=== PATIENT | male | born 1970 | race Caucasian/White ===

== ENCOUNTER 2018-11-18 17:30 | Emergency (ER) | payer MEDICAID ==
[~2018-11-18] VITALS: Ht 170.2 cm; Wt 71.0 kg
[~2018-11-18 17:30] MED LIST: DOCU-28 PO; NO HOME MEDS
[2018-11-18 17:32] VITALS: BP 120/81
[2018-11-18] MEDS ORDERED: AMOX-580 PO (18:18)
== END 2018-11-18 18:25 | disposition home or self-care (01) ==
LOC: ER 17:31
DX: H66.92 Otitis media, unspecified, left ear (principal); F15.90 Other stimulant use, unspecified, uncomplicated; Z87.442 Personal history of urinary calculi
CPT/HCPCS: 99283

== ENCOUNTER 2020-12-10 19:07 | Emergency (ER) | payer MEDICAID ==
[~2020-12-10] VITALS: Ht 172.7 cm; Wt 79.5 kg
[2020-12-10 19:20] VITALS: BP 156/95
--- NOTE | 2020-12-10 19:52 | NUR ---
Per pt, noted foreign object while removing branch. Pt does not complain of pain at this time. Complains of watering and pressure. Denies any other issues at this time.
[2020-12-10] MEDS ORDERED: proparacaine 0.5% ophthalmic drops 15ml EACHEYE ONE (20:00)
[2020-12-10] MEDS ORDERED: erythromycin ophthalmic ointment 1gm tube RIGHTEYE ONE (20:55)
[2020-12-10] MEDS ORDERED: ERYT1OIN6 RIGHTEYE (20:57)
== END 2020-12-10 21:08 | disposition home or self-care (01) ==
LOC: ER 19:08
DX: T15.01XA Foreign body in cornea, right eye, initial encounter (principal); W22.8XXA Striking against or struck by other objects, initial encounter; Y92.017 Garden or yard in single-family (private) house as the place of occurrence of the external cause; Y93.89 Activity, other specified; F15.90 Other stimulant use, unspecified, uncomplicated; Z79.2 Long term (current) use of antibiotics; Z79.899 Other long term (current) drug therapy; Z87.440 Personal history of urinary (tract) infections; Z72.89 Other problems related to lifestyle
CPT/HCPCS: 65220; 99283; 99284

== ENCOUNTER 2022-11-26 09:59 | Emergency (ER) | payer MEDICAID ==
[~2022-11-26] VITALS: Ht 167.6 cm; Wt 79.0 kg
[2022-11-26 10:14] VITALS: BP 124/75
--- NOTE | 2022-11-26 11:12 | NUR ---
PT REFUSED XRAY
[2022-11-26] MEDS ORDERED: CEPH-585 PO (11:26)
== END 2022-11-26 11:39 | disposition home or self-care (01) ==
LOC: ER 10:00
DX: L02.512 Cutaneous abscess of left hand (principal); F15.10 Other stimulant abuse, uncomplicated; Z87.442 Personal history of urinary calculi
CPT/HCPCS: 10060; 99283

== ENCOUNTER 2023-03-02 05:24 | Emergency (ER) | payer SELFPAY ==
[~2023-03-02] VITALS: Ht 167.6 cm; Wt 81.8 kg
[~2023-03-02 05:24] MED LIST changes: +CEPH-585 PO
[2023-03-02] MEDS ORDERED: ketorolac trometh inj. 60 MG/2 ML VIAL IM ONE (06:10)
[2023-03-02] MEDS ORDERED: morphine 4 MG/ML inj SYRINge IV ONE (06:15)
[2023-03-02] MEDS ORDERED: ondansetron/PF 4mg/2ml inj IV ONE (06:15)
--- NOTE | 2023-03-02 06:43 | NUR ---
RN WAS ABLE TO OBTAIN 22G IV TO RIGHT WRIST BUT WAS NOT ABLE TO DRAW BACK BLOOD FOR LABS. RN WILL NOTIFY PROVIDER.
--- NOTE | 2023-03-02 06:50 | NUR ---
PT REPORTS NO PAIN OR NAUSEA AND REFUSES MED AT THIS TIME.
[2023-03-02 08:13] LABS: ALANINE AMINOTRANSFERASE 24 U/L (12-78); ALBUMIN 3.9 G/DL (3.4-5.0); ALBUMIN/GLOBULIN RATIO 1.1 (1.1-1.5); ALKALINE PHOSPHATASE 120 IU/L (46-116); ANION GAP 8 (8-16); ASPARTATE AMINO TRANSFERASE 13 U/L (10-37); BASOPHILS % (AUTO) 0.3 % (0-1); BILIRUBIN,TOTAL 0.5 MG/DL (0.1-1.0); BLOOD UREA NITROGEN 24 MG/DL (7-18); BUN/CREATININE RATIO 21.6 (10.0-20.0); CALCIUM 8.6 MG/DL (8.5-10.1); CHLORIDE 106 MMOL/L (99-107); CREATININE 1.11 MG/DL (0.60-1.10); EOSINOPHILS # (AUTO) 0.1 X10'3 (0-0.9); EOSINOPHILS % (AUTO) 0.6 % (0-6); GLUCOSE 141 MG/DL (70-104); HEMOGLOBIN 13.9 g/dl (14.0-17.9); LYMPHOCYTES # (AUTO) 1.3 X10'3 (1.1-4.8); LYMPHOCYTES % (AUTO) 9.4 % (21-51); MEAN PLATELET VOLUME 7.3 FL (7.4-10.4); MONOCYTES # (AUTO) 0.4 X10'3 (0-0.9); MONOCYTES % (AUTO) 3.1 % (2-12); NEUTROPHILS # (AUTO) 12.3 X10'3 (1.8-7.7); NEUTROPHILS % (AUTO) 86.6 % (42-75); PLATELET COUNT 327 X10'3 (140-440); POTASSIUM 3.7 MMOL/L (3.5-5.1); RED BLOOD COUNT 4.62 X10'6 (4.70-6.10); SODIUM 141 MMOL/L (135-145); TOTAL CARBON DIOXIDE 26.9 MMOL/L (24-32); TOTAL PROTEIN 7.3 G/DL (6.4-8.2); WHITE BLOOD COUNT 14.2 X10'3 (4.5-11.0); eGFR 70 ML/MIN
[2023-03-02] MEDS ORDERED: ONDA4TAB12 PO (10:32)
[2023-03-02] MEDS ORDERED: IBUP-1986 PO (10:32)
[2023-03-02 10:41] VITALS: BP 137/86
--- NOTE | 2023-03-02 10:45 | NUR ---
RN CALLED PT CONTACT MOHIT HE COME GET PT FROM ED WAITING ROOM.
== END 2023-03-02 10:48 | disposition home or self-care (01) ==
LOC: ER 05:25
DX: N23 Unspecified renal colic (principal); F15.10 Other stimulant abuse, uncomplicated; Z87.442 Personal history of urinary calculi; Z79.899 Other long term (current) drug therapy
CPT/HCPCS: 36415; 74176; 80053; 85025; 96372; 99285; J1885; 99284